=== PATIENT | female | born 1955 | race Caucasian/White ===

== ENCOUNTER 2019-01-25 14:01 | Inpatient (IN) | payer BC ==
[2019-01-25] MEDS ORDERED: Albuterol/Ipratropium 3.0-0.5 MG/3 ML Neb Soln NEB ONE (14:09)
[2019-01-25] MEDS ORDERED: Sodium Chloride 0.9% 1,000 ML IV ONE (14:09)
[2019-01-25] MEDS ORDERED: Sodium Chloride 0.9% 2.5 ML Syringe FLUSH PRN (14:10)
[2019-01-25] MEDS ORDERED: Sodium Chloride 0.9% 10 ML Syringe FLUSH PRN (14:10)
--- NOTE | 2019-01-25 14:25 | EDM.PDOC ---
ED HPI GENERAL MEDICAL PROBLEM - General Chief Complaint: Respiratory Problem Stated Complaint: FLU Time Seen by Provider: 01/25/19 14:06 Source of Information: Reports: Patient History Limitations: Reports: No Limitations - History of Present Illness INITIAL COMMENTS - FREE TEXT/NARRATIVE: History of present illness: []Patient was diagnosed clinically with influenza week and half ago and completed 5 days of Tamiflu 4 days after symptoms began. She now presents with shortness of breath, worsening cough, weakness and diarrhea. Review of systems: As per history of present illness and below otherwise all systems reviewed and negative. Past medical history: As per history of present illness and as reviewed below otherwise noncontributory. Surgical history: As per history of present illness and as reviewed below otherwise noncontributory. Social history: No reported history of drug or alcohol abuse. Family history: As per history of present illness and as reviewed below otherwise noncontributory. Physical exam: General: Well developed, well nourished in NAD HEENT: Atraumatic, normocephalic, pupils reactive, negative for conjunctival pallor or scleral icterus, mucous membranes moist, throat clear, neck supple, nontender, trachea midline. Lungs: Rhonchi diffuse equal bilaterally, chest nontender. Heart: S1S2, regular, negative for clicks, rubs, or JVD. Abdomen: NABS, Soft, nondistended, nontender. Negative for masses or hepatosplenomegaly. Negative for costovertebral tenderness. Pelvis: Stable nontender. Genitourinary: Deferred. Rectal: Deferred. Extremities: Atraumatic, negative for cords or calf pain. Neurovascular unremarkable. Neuro: Awake, alert, oriented. Cranial nerves II through XII unremarkable. Cerebellum unremarkable. Motor and sensory unremarkable throughout. Exam nonfocal. Skin:warm and dry Diagnostics: Blood cultures, CBC, chemistry, influenza, chest x-ray Therapeutics: DuoNeb, IV fluids, O2, Levaquin ED Course: Patient remained hypoxic despite nebulizers, consulted Dr. Urias for admission Impression: Left upper lobe pneumonia with elevated white count and hypoxia Prescriptions: None Plan: Admit for IV antibiotics, O2 supplementation and IV fluids. Definitive disposition and diagnosis as appropriate pending reevaluation and review of above. Generalized Pain Score (Numeric/FACES): 4 - Related Data Allergies Allergy/AdvReac Type Severity Reaction Status Date / Time clindamycin Allergy Diarrhea Verified 01/25/19 14:05 erythromycin base Allergy Diarrhea Verified 01/25/19 14:05 [Erythromycin Base] lisinopril Allergy Facial Verified 01/25/19 14:05 Swelling Home Meds: Home Meds Diltiazem IR [Cardizem] 1 tab PO BEDTIME 06/29/14 [History] Escitalopram [Lexapro] 1 tab PO DAILY 06/29/14 [History] Pramipexole [Mirapex] 1 tab PO DAILY 06/29/14 [History] Past Medical History Cardiovascular History: Reports: Hypertension, Other (See Below) Other Cardiovascular History: PAC Gastrointestinal History: Reports: Diverticulosis, Irritable Bowel Syndrome Genitourinary History: Reports: Renal Calculus 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: Psychiatric History: Reports: Anxiety - Infectious Disease History Infectious Disease History: Reports: Chicken Pox - Past Surgical History HEENT Surgical History: Reports: Tonsillectomy Female Surgical History: Reports: Section, Lithotripsy/ESWL Musculoskeletal Surgical History: Reports: Carpal Tunnel, Other (See Below) Social & Family History - Family History Family Medical History: Noncontributory - Tobacco Use Smoking Status *Q: Never Smoker - Caffeine Use Caffeine Use: Reports: None - Recreational Drug Use Recreational Drug Use: No ED ROS GENERAL - Review of Systems Review Of Systems: ROS reveals no pertinent complaints other than HPI. ED EXAM, GENERAL - Physical Exam Exam: See Below (See history of present illness) Course - Vital Signs Last Recorded V/S: Last Vital Signs Temp 100.1 F 01/25/19 15:17 Pulse 112 H 01/25/19 15:17 Resp 15 01/25/19 15:17 BP 154/68 H 01/25/19 15:17 Pulse Ox 93 L 01/25/19 15:17 - Orders/Labs/Meds Orders: Active Orders 24 hr Category Date Time Status Patient Status [ADT] Stat ADT 01/25/19 15:36 Ordered Oxygen Therapy, ED [RC] ASDIRECTED Care 01/25/19 15:28 Active RT Aerosol Therapy [RC] ASDIRECTED Care 01/25/19 14:10 Active CULTURE BLOOD [BC] Stat Lab 01/25/19 14:23 Received CULTURE BLOOD [BC] Stat Lab 01/25/19 14:23 Received Levofloxacin/Dextrose 5%-Water [Levaquin in D5W 500 MG/ Med 01/25/19 15:04 Active 100 ML] 500 mg Premix Bag 1 bag IV ONETIME Sodium Chloride 0.9% [Saline Flush] Med 01/25/19 14:10 Active 10 ml FLUSH ASDIRECTED PRN Sodium Chloride 0.9% [Saline Flush] Med 01/25/19 14:10 Active 2.5 ml FLUSH ASDIRECTED PRN Blood Culture x2 Reflex Set [OM.PC] Stat Oth 01/25/19 14:09 Ordered Saline Lock Insert [OM.PC] Stat Oth 01/25/19 14:09 Ordered Medication Orders Levofloxacin/Dextrose 500 mg/ (Premix) 100 mls @ 100 mls/hr IV ONETIME ONE Stop: 01/25/19 16:03 Last Admin: 01/25/19 15:16 Dose: 100 mls/hr Sodium Chloride (Saline Flush) 10 ml FLUSH ASDIRECTED PRN PRN Reason: Keep Vein Open Last Admin: 01/25/19 14:24 Dose: 10 ml Sodium Chloride (Saline Flush) 2.5 ml FLUSH ASDIRECTED PRN PRN Reason: Keep Vein Open Last Admin: 01/25/19 14:24 Dose: 2.5 ml Labs: Laboratory Tests 01/25/19 01/25/19 Range/Units 14:23 14:23 WBC 19.15 H (4.0-11.0) K/uL RBC 5.20 (4.30-5.90) M/uL Hgb 15.3 (12.0-16.0) g/dL Hct 45.1 (36.0-46.0) % MCV 86.7 (80.0-98.0) fL MCH 29.4 (27.0-32.0) pg MCHC 33.9 (31.0-37.0) g/dL RDW Std Deviation 45.6 (28.0-62.0) fl RDW Coeff of Becky 14 (11.0-15.0) % Plt Count 460 H (150-400) K/uL MPV 9.90 (7.40-12.00) fL Add Manual Diff YES Neutrophils % (Manual) 71 (48.0-80.0) % Band Neutrophils % 4 % Lymphocytes % (Manual) 18 (16.0-40.0) % Monocytes % (Manual) 7 (0.0-15.0) % Nucleated RBC % 0.0 /100WBC Absolute Seg Neuts 13.6 H (1.4-5.7) Band Neutrophils # 0.8 Lymphocytes # (Manual) 3.4 H (0.6-2.4) Monocytes # (Manual) 1.3 H (0.0-0.8) Nucleated RBCs # 0 K/uL Sodium 136 (136-145) mmol/L Potassium 3.7 (3.5-5.1) mmol/L Chloride 99 (98-107) mmol/L Carbon Dioxide 23.9 (21.0-32.0) mmol/L BUN 17 (7.0-18.0) mg/dL Creatinine 0.7 (0.6-1.0) mg/dL Est Cr Clr Drug Dosing 85.14 mL/min Estimated GFR (MDRD) > 60.0 ml/min Glucose 134 H (74-106) mg/dL Calcium 9.6 (8.5-10.1) mg/dL Total Bilirubin 0.4 (0.2-1.0) mg/dL AST 25 (15-37) IU/L ALT 32 (14-63) IU/L Alkaline Phosphatase 128 H (46-116) U/L Total Protein 8.2 (6.4-8.2) g/dL Albumin 2.8 L (3.4-5.0) g/dL Globulin 5.4 H (2.6-4.0) g/dL Albumin/Globulin Ratio 0.5 L (0.9-1.6) Meds: Medications Generic Name Dose Route Start Last Admin Trade Name Freq PRN Reason Stop Dose Admin Levofloxacin/Dextrose 500 mg/ 100 mls @ 100 mls/hr 01/25/19 15:04 01/25/19 15 :16 Premix IV 01/25/19 16:03 100 mls/hr ONETIME ONE Administration Sodium Chloride 10 ml 01/25/19 14:10 01/25/19 14:24 Saline Flush FLUSH 10 ml ASDIRECTED PRN Administration Keep Vein Open Sodium Chloride 2.5 ml 01/25/19 14:10 01/25/19 14:24 Saline Flush FLUSH 2.5 ml ASDIRECTED PRN Administration Keep Vein Open Discontinued Medications Generic Name Dose Route Start Last Admin Trade Name Freq PRN Reason Stop Dose Admin Albuterol/Ipratropium 3 ml 01/25/19 14:09 01/25/19 14:24 Duoneb 3.0-0.5 Mg/3 Ml NEB 01/25/19 14:10 3 ml ONETIME ONE Administration Sodium Chloride 1,000 mls @ 999 mls/hr 01/25/19 14:09 01/25/19 14:24 Normal Saline IV 01/25/19 15:09 999 mls/hr .Bolus ONE Administration Ketorolac Tromethamine 30 mg 01/25/19 15:09 01/25/19 15:14 Toradol IVPUSH 01/25/19 15:10 30 mg ONETIME ONE Administration Departure - Departure Time of Disposition: 15:41 Disposition: Admitted As Inpatient 68 Preliminary Cause of *Q: Sepsis & Multi System Organ Failure Condition: Good Clinical Impression: Left upper lobe pneumonia Qualifiers: Pneumonia type: due to unspecified organism Qualified Code(s): J18.1 - Lobar pneumonia, unspecified organism - Discharge Information *PRESCRIPTION DRUG MONITORING PROGRAM REVIEWED*: No *COPY OF PRESCRIPTION DRUG MONITORING REPORT IN PATIENT TRENT: No Referrals: PCP,Unknown [Primary Care Provider] - Forms: ED Department Discharge - My Orders Last 24 Hours: My Active Orders 01/25/19 14:09 Blood Culture x2 Reflex Set [OM.PC] Stat Saline Lock Insert [OM.PC] Stat 01/25/19 14:10 RT Aerosol Therapy [RC] ASDIRECTED Sodium Chloride 0.9% [Saline Flush] 10 ml FLUSH ASDIRECTED PRN Sodium Chloride 0.9% [Saline Flush] 2.5 ml FLUSH ASDIRECTED PRN 01/25/19 14:23 CULTURE BLOOD [BC] Stat CULTURE BLOOD [BC] Stat 01/25/19 15:04 Levofloxacin/Dextrose 5%-Water [Levaquin in D5W 500 MG/100 ML] 500 mg Premix Bag 1 bag IV ONETIME 01/25/19 15:28 Oxygen Therapy, ED [RC] ASDIRECTED 01/25/19 15:36 Patient Status [ADT] Stat - Assessment/Plan Last 24 Hours: My Active Orders 01/25/19 14:09 Blood Culture x2 Reflex Set [OM.PC] Stat Saline Lock Insert [OM.PC] Stat 01/25/19 14:10 RT Aerosol Therapy [RC] ASDIRECTED Sodium Chloride 0.9% [Saline Flush] 10 ml FLUSH ASDIRECTED PRN Sodium Chloride 0.9% [Saline Flush] 2.5 ml FLUSH ASDIRECTED PRN 01/25/19 14:23 CULTURE BLOOD [BC] Stat CULTURE BLOOD [BC] Stat 01/25/19 15:04 Levofloxacin/Dextrose 5%-Water [Levaquin in D5W 500 MG/100 ML] 500 mg Premix Bag 1 bag IV ONETIME 01/25/19 15:28 Oxygen Therapy, ED [RC] ASDIRECTED 01/25/19 15:36 Patient Status [ADT] Stat
[2019-01-25 14:57] LABS: CHLORIDE,CL 99 mmol/L (98-107); SODIUM,NA 136 mmol/L (136-145)
[2019-01-25] MEDS ORDERED: Levofloxacin/Dextrose 5%-Water 500 MG in Premix Bag 1 BAG IV ONE (15:04)
[2019-01-25] MEDS ORDERED: Ketorolac 30 MG/ML SDV IVPUSH ONE (15:09)
--- NOTE | 2019-01-25 15:30 | CR ---
INDICATION: Pain with cough and shortness of breath. TECHNIQUE: Two views. FINDINGS : Subtle hazy opacity in the left upper lobe laterally with prominence of the fissure on the lateral view. Pulmonary vascularity is upper normal. Subtle thin reticular prominence of interstitium diffusely. Some patchy and reticular opacities in both bases medially. Pulmonary vascularity normal. Cardiomediastinal silhouette within normal limits. No pneumothorax or effusion. IMPRESSION: Subtle left upper lobe pneumonia. Mild interstitial prominence diffusely. Dictated by Kirk Mendoza MD @ Jan 25 2019 3:20PM Signed by Dr. Kirk Mendoza @ Jan 25 2019 3:28PM
--- NOTE | 2019-01-25 18:34 | PCM.HP ---
H&P History of Present Illness - General Date of Service: 01/25/19 Admit Problem/Dx: Admission Diagnosis/Problem Admission Diagnosis/Problem Pneumonia - History of Present Illness Initial Comments - Free Text/Narative: 63 yo female who presents with three week history of productive cough, fevers, and shortness of breath. Patient has completed five days of tamiflu at home. Because her symptoms were not resolving she presented to the ED today. She was noted to be satting in the upper 80s or room air. WBC of 19,500 and CXR showing left upper lobe pneumonia. Generalized Pain Score (Numeric/FACES): 0 - Related Data Allergies/Adverse Reactions: Allergies Allergy/AdvReac Type Severity Reaction Status Date / Time clindamycin Allergy Diarrhea Verified 01/25/19 14:05 erythromycin base Allergy Diarrhea Verified 01/25/19 14:05 [Erythromycin Base] lisinopril Allergy Facial Verified 01/25/19 14:05 Swelling Home Medications: Home Meds Escitalopram [Lexapro] 10 mg PO BEDTIME 06/29/14 [History] Pramipexole [Mirapex] 0.25 mg PO ASDIRECTED 06/29/14 [History] Diltiazem HCl [Diltiazem ER] 240 mg PO BEDTIME 01/25/19 [History] Melatonin 5 mg PO BEDTIME PRN 01/25/19 [History] atorvaSTATin Calcium [Lipitor] 40 mg PO BEDTIME 01/25/19 [History] hydroCHLOROthiazide [Hydrochlorothiazide] 25 mg PO DAILY 01/25/19 [History] Past Medical History HEENT History: Reports: Impaired Vision Cardiovascular History: Reports: Hypertension, Other (See Below) Other Cardiovascular History: PAC Respiratory History: Reports: Asthma Gastrointestinal History: Reports: Diverticulosis, Irritable Bowel Syndrome Genitourinary History: Reports: Renal Calculus 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 Removed. Dermatologic History: Reports: Other (See Below) Other Dermatologic History: Squamous cell carinoma to head. Removed. - Infectious Disease History Infectious Disease History: Reports: Chicken Pox - Past Surgical History Head Surgeries/Procedures: Reports: None HEENT Surgical History: Reports: Tonsillectomy Other HEENT Surgeries/Procedures: Wears glasses. Cardiovascular Surgical History: Reports: None GI Surgical History: Reports: None Female Surgical History: Reports: Section, Lithotripsy/ESWL Musculoskeletal Surgical History: Reports: Carpal Tunnel, Other (See Below) Other Musculoskeletal Surgeries/Procedures:: Scope to R knee. Oncologic Surgical History: Reports: None Social & Family History - Family History Family Medical History: Noncontributory - Tobacco Use Smoking Status *Q: Never Smoker Second Hand Smoke Exposure: No - Caffeine Use Caffeine Use: Reports: None - Recreational Drug Use Recreational Drug Use: No H&P Review of Systems - Review of Systems: Review Of Systems: ROS reveals no pertinent complaints other than HPI. Exam - Exam Exam: See Below - Vital Signs Vital Signs: Last Vital Signs Temp 37.1 C 01/25/19 16:00 Pulse 107 H 01/25/19 16:00 Resp 18 01/25/19 16:00 BP 140/53 L 01/25/19 16:00 Pulse Ox 95 01/25/19 16:00 Weight: 94.483 kg - Exam General: Alert, Oriented HEENT: Mucosa Moist & [place]aks Lungs: Clear to Auscultation, Normal Respiratory Effort Cardiovascular: Regular Rate, Regular Rhythm GI/Abdominal Exam: Normal Bowel Sounds, Soft, Non-Tender Extremities: Non-Tender, No Pedal Edema Skin: Warm, Dry, Intact - Patient Data Lab Results Last 24 hrs: Laboratory Results - last 24 hr 01/25/19 01/25/19 Range/Units 14:23 14:23 WBC 19.15 H (4.0-11.0) K/uL RBC 5.20 (4.30-5.90) M/uL Hgb 15.3 (12.0-16.0) g/dL Hct 45.1 (36.0-46.0) % MCV 86.7 (80.0-98.0) fL MCH 29.4 (27.0-32.0) pg MCHC 33.9 (31.0-37.0) g/dL RDW Std Deviation 45.6 (28.0-62.0) fl RDW Coeff of Becky 14 (11.0-15.0) % Plt Count 460 H (150-400) K/uL MPV 9.90 (7.40-12.00) fL Add Manual Diff YES Neutrophils % (Manual) 71 (48.0-80.0) % Band Neutrophils % 4 % Lymphocytes % (Manual) 18 (16.0-40.0) % Monocytes % (Manual) 7 (0.0-15.0) % Nucleated RBC % 0.0 /100WBC Absolute Seg Neuts 13.6 H (1.4-5.7) Band Neutrophils # 0.8 Lymphocytes # (Manual) 3.4 H (0.6-2.4) Monocytes # (Manual) 1.3 H (0.0-0.8) Nucleated RBCs # 0 K/uL Sodium 136 (136-145) mmol/L Potassium 3.7 (3.5-5.1) mmol/L Chloride 99 (98-107) mmol/L Carbon Dioxide 23.9 (21.0-32.0) mmol/L BUN 17 (7.0-18.0) mg/dL Creatinine 0.7 (0.6-1.0) mg/dL Est Cr Clr Drug Dosing 85.14 mL/min Estimated GFR (MDRD) > 60.0 ml/min Glucose 134 H (74-106) mg/dL Calcium 9.6 (8.5-10.1) mg/dL Total Bilirubin 0.4 (0.2-1.0) mg/dL AST 25 (15-37) IU/L ALT 32 (14-63) IU/L Alkaline Phosphatase 128 H (46-116) U/L Total Protein 8.2 (6.4-8.2) g/dL Albumin 2.8 L (3.4-5.0) g/dL Globulin 5.4 H (2.6-4.0) g/dL Albumin/Globulin Ratio 0.5 L (0.9-1.6) Result Diagrams: 01/26/19 07:27 01/26/19 07:27 Jian Results Last 24 hrs: Microbiology 01/25/19 14:16 Influenza Type A Antigen Screen - Final Nasopharyngeal Swab NEGATIVE INFLUENZA A VIRUS AG Influenza Type B Antigen Screen - Final NEGATIVE INFLUENZA B VIRUS AG Problem List Initiated/Reviewed/Updated: Yes Orders Last 24hrs: Active Orders 24 hr Category Date Time Status Patient Status [ADT] Stat ADT 01/25/19 15:36 Active Oxygen Therapy, ED [RC] ASDIRECTED Care 01/25/19 15:28 Active RT Aerosol Therapy [RC] ASDIRECTED Care 01/25/19 14:10 Active Regular Diet [DIET] Diet 01/25/19 Dinner Active CULTURE BLOOD [BC] Stat Lab 01/25/19 14:23 Received CULTURE BLOOD [BC] Stat Lab 01/25/19 14:23 Received Diltiazem HCl Med 01/25/19 21:00 Ordered 240 mg PO BEDTIME Escitalopram Med 01/25/19 21:00 Ordered 10 mg PO BEDTIME Levofloxacin/Dextrose 5%-Water [Levaquin in D5W 750 MG/ Med 01/26/19 16:00 Ordered 150 ML] 750 mg Premix Bag 1 bag IV Q24H Melatonin [Melatonin] Med 01/25/19 18:28 Ordered 5 mg PO BEDTIME PRN Pramipexole Med 01/25/19 18:30 Ordered 0.25 mg PO ASDIRECTED Sodium Chloride 0.9% [Saline Flush] Med 01/25/19 14:10 Active 10 ml FLUSH ASDIRECTED PRN Sodium Chloride 0.9% [Saline Flush] Med 01/25/19 14:10 Active 2.5 ml FLUSH ASDIRECTED PRN atorvaSTATin [Lipitor] Med 01/25/19 21:00 Ordered 40 mg PO BEDTIME hydroCHLOROthiazide Med 01/26/19 09:00 Ordered 25 mg PO DAILY Blood Culture x2 Reflex Set [OM.PC] Stat Oth 01/25/19 14:09 Ordered Saline Lock Insert [OM.PC] Stat Oth 01/25/19 14:09 Ordered Medication Orders Levofloxacin/Dextrose 750 mg/ (Premix) 150 mls @ 100 mls/hr IV Q24H TODD Sodium Chloride (Saline Flush) 10 ml FLUSH ASDIRECTED PRN PRN Reason: Keep Vein Open Last Admin: 01/25/19 14:24 Dose: 10 ml Sodium Chloride (Saline Flush) 2.5 ml FLUSH ASDIRECTED PRN PRN Reason: Keep Vein Open Last Admin: 01/25/19 14:24 Dose: 2.5 ml Assessment/Plan Comment:: 63 yo female admitted with community acquired pneumonia. We will treat with Levaquin.
[2019-01-25] MEDS: Diltiazem 120 MG Cap.CD PO SCH (20:44)
[2019-01-25] MEDS: Escitalopram 10 MG Tab PO SCH (20:45)
[2019-01-25] MEDS: atorvaSTATin 40 MG Tab PO SCH (20:45)
[2019-01-25] MEDS ORDERED: Albuterol/Ipratropium 3.0-0.5 MG/3 ML Neb Soln NEB PRN (21:19)
[2019-01-25] MEDS: Albuterol/Ipratropium 3.0-0.5 MG/3 ML Neb Soln NEB SCH (21:35)
[2019-01-25] MEDS: Melatonin 3 MG Tab PO PRN (22:23)
[2019-01-26] MEDS: Albuterol/Ipratropium 3.0-0.5 MG/3 ML Neb Soln NEB SCH ×4 (00:07→17:22)
[2019-01-26 07:59] LABS: CHLORIDE,CL 104 mmol/L (98-107); SODIUM,NA 137 mmol/L (136-145)
[2019-01-26] MEDS: Acetaminophen 325 MG Tab PO PRN ×2 (09:00→19:55)
[2019-01-26] MEDS: Hydrochlorothiazide 25 MG Tab PO SCH (09:00)
--- NOTE | 2019-01-26 10:18 | PCM.PN ---
- General Info Date of Service: 01/26/19 Subjective Update: Patient reports she is doing ok, she is still requiring some oxygen. She denies chest pain, abdominal pain, or fevers. No trouble eating, drinking, or going to the bathroom. - Review of Systems General: Reports: No Symptoms HEENT: Reports: No Symptoms Pulmonary: Reports: Cough Cardiovascular: Reports: No Symptoms Gastrointestinal: Reports: No Symptoms Genitourinary: Reports: No Symptoms Musculoskeletal: Reports: No Symptoms Skin: Reports: No Symptoms Neurological: Reports: No Symptoms Psychiatric: Reports: No Symptoms - Patient Data Vitals - Most Recent: Last Vital Signs Temp 97.0 F 01/26/19 07:30 Pulse 87 01/26/19 07:30 Resp 18 01/26/19 07:30 BP 126/59 L 01/26/19 07:30 Pulse Ox 92 L 01/26/19 07:30 Weight - Most Recent: 94.483 kg I&O - Last 24 Hours: Intake & Output 01/25/19 01/26/19 01/26/19 22:59 06:59 14:59 Intake Total 300 Output Total 400 Balance -100 Lab Results Last 24 Hours: Laboratory Results - last 24 hr 01/25/19 01/25/19 01/26/19 Range/Units 14:23 14:23 07:27 WBC 19.15 H (4.0-11.0) K/uL RBC 5.20 (4.30-5.90) M/uL Hgb 15.3 (12.0-16.0) g/dL Hct 45.1 (36.0-46.0) % MCV 86.7 (80.0-98.0) fL MCH 29.4 (27.0-32.0) pg MCHC 33.9 (31.0-37.0) g/dL RDW Std Deviation 45.6 (28.0-62.0) fl RDW Coeff of Becky 14 (11.0-15.0) % Plt Count 460 H (150-400) K/uL MPV 9.90 (7.40-12.00) fL Neut % (Auto) (48.0-80.0) % Lymph % (Auto) (16.0-40.0) % Archer % (Auto) (0.0-15.0) % Eos % (Auto) (0.0-7.0) % Baso % (Auto) (0.0-1.5) % Neut # (Auto) (1.4-5.7) K/uL Lymph # (Auto) (0.6-2.4) K/uL Archer # (Auto) (0.0-0.8) K/uL Eos # (Auto) (0.0-0.7) K/uL Baso # (Auto) (0.0-0.1) K/uL Add Manual Diff YES Neutrophils % (Manual) 71 (48.0-80.0) % Band Neutrophils % 4 % Lymphocytes % (Manual) 18 (16.0-40.0) % Monocytes % (Manual) 7 (0.0-15.0) % Nucleated RBC % 0.0 /100WBC Absolute Seg Neuts 13.6 H (1.4-5.7) Band Neutrophils # 0.8 Lymphocytes # (Manual) 3.4 H (0.6-2.4) Monocytes # (Manual) 1.3 H (0.0-0.8) Nucleated RBCs # 0 K/uL Sodium 136 137 (136-145) mmol/L Potassium 3.7 3.8 (3.5-5.1) mmol/L Chloride 99 104 (98-107) mmol/L Carbon Dioxide 23.9 25.2 (21.0-32.0) mmol/L BUN 17 12 (7.0-18.0) mg/dL Creatinine 0.7 0.6 (0.6-1.0) mg/dL Est Cr Clr Drug Dosing 85.14 99.33 mL/min Estimated GFR (MDRD) > 60.0 > 60.0 ml/min Glucose 134 H 147 H (74-106) mg/dL Calcium 9.6 8.3 L (8.5-10.1) mg/dL Total Bilirubin 0.4 (0.2-1.0) mg/dL AST 25 (15-37) IU/L ALT 32 (14-63) IU/L Alkaline Phosphatase 128 H (46-116) U/L Total Protein 8.2 (6.4-8.2) g/dL Albumin 2.8 L (3.4-5.0) g/dL Globulin 5.4 H (2.6-4.0) g/dL Albumin/Globulin Ratio 0.5 L (0.9-1.6) 01/26/19 Range/Units 07:27 WBC 14.33 H (4.0-11.0) K/uL RBC 4.43 (4.30-5.90) M/uL Hgb 12.7 (12.0-16.0) g/dL Hct 38.6 (36.0-46.0) % MCV 87.1 (80.0-98.0) fL MCH 28.7 (27.0-32.0) pg MCHC 32.9 (31.0-37.0) g/dL RDW Std Deviation 46.5 (28.0-62.0) fl RDW Coeff of Becky 15 (11.0-15.0) % Plt Count 380 (150-400) K/uL MPV 9.80 (7.40-12.00) fL Neut % (Auto) 82.1 H (48.0-80.0) % Lymph % (Auto) 11.3 L (16.0-40.0) % Archer % (Auto) 5.8 (0.0-15.0) % Eos % (Auto) 0.5 (0.0-7.0) % Baso % (Auto) 0.3 (0.0-1.5) % Neut # (Auto) 11.8 H (1.4-5.7) K/uL Lymph # (Auto) 1.6 (0.6-2.4) K/uL Archer # (Auto) 0.8 (0.0-0.8) K/uL Eos # (Auto) 0.1 (0.0-0.7) K/uL Baso # (Auto) 0.0 (0.0-0.1) K/uL Add Manual Diff Neutrophils % (Manual) (48.0-80.0) % Band Neutrophils % % Lymphocytes % (Manual) (16.0-40.0) % Monocytes % (Manual) (0.0-15.0) % Nucleated RBC % 0.0 /100WBC Absolute Seg Neuts (1.4-5.7) Band Neutrophils # Lymphocytes # (Manual) (0.6-2.4) Monocytes # (Manual) (0.0-0.8) Nucleated RBCs # 0 K/uL Sodium (136-145) mmol/L Potassium (3.5-5.1) mmol/L Chloride (98-107) mmol/L Carbon Dioxide (21.0-32.0) mmol/L BUN (7.0-18.0) mg/dL Creatinine (0.6-1.0) mg/dL Est Cr Clr Drug Dosing mL/min Estimated GFR (MDRD) ml/min Glucose (74-106) mg/dL Calcium (8.5-10.1) mg/dL Total Bilirubin (0.2-1.0) mg/dL AST (15-37) IU/L ALT (14-63) IU/L Alkaline Phosphatase (46-116) U/L Total Protein (6.4-8.2) g/dL Albumin (3.4-5.0) g/dL Globulin (2.6-4.0) g/dL Albumin/Globulin Ratio (0.9-1.6) Jian Results Last 24 Hours: Microbiology 01/25/19 14:16 Influenza Type A Antigen Screen - Final Nasopharyngeal Swab NEGATIVE INFLUENZA A VIRUS AG Influenza Type B Antigen Screen - Final NEGATIVE INFLUENZA B VIRUS AG Med Orders - Current: Current Medications Acetaminophen (Tylenol) 650 mg PO Q4H PRN PRN Reason: Pain/Fever Last Admin: 01/26/19 09:00 Dose: 650 mg Albuterol/Ipratropium (Duoneb 3.0-0.5 Mg/3 Ml) 3 ml NEB Q4HRRT PRN PRN Reason: Shortness of Breath Albuterol/Ipratropium (Duoneb 3.0-0.5 Mg/3 Ml) 3 ml NEB Q6HRRT [facility] Last Admin: 01/26/19 05:52 Dose: 3 ml Atorvastatin Calcium (Lipitor) 40 mg PO BEDTIME TODD Last Admin: 01/25/19 20:45 Dose: 40 mg Diltiazem HCl (Cardizem Cd) 240 mg PO BEDTIME TODD Last Admin: 01/25/19 20:44 Dose: 240 mg Escitalopram Oxalate (Lexapro) 10 mg PO BEDTIME [facility] Last Admin: 01/25/19 20:45 Dose: 10 mg Hydrochlorothiazide (Hydrochlorothiazide) 25 mg PO DAILY [facility] Last Admin: 01/26/19 09:00 Dose: 25 mg Levofloxacin/Dextrose 750 mg/ (Premix) 150 mls @ 100 mls/hr IV Q24H TODD Melatonin (Melatonin) 6 mg PO BEDTIME PRN PRN Reason: SLEEP Last Admin: 01/25/19 22:23 Dose: 6 mg Pramipexole Dihydrochloride (Mirapex) 0.25 mg PO DAILY@1700 TODD Sodium Chloride (Saline Flush) 10 ml FLUSH ASDIRECTED PRN PRN Reason: Keep Vein Open Last Admin: 01/25/19 14:24 Dose: 10 ml Sodium Chloride (Saline Flush) 2.5 ml FLUSH ASDIRECTED PRN PRN Reason: Keep Vein Open Last Admin: 01/25/19 14:24 Dose: 2.5 ml Discontinued Medications Albuterol/Ipratropium (Duoneb 3.0-0.5 Mg/3 Ml) 3 ml NEB ONETIME ONE Stop: 01/25/19 14:10 Last Admin: 01/25/19 14:24 Dose: 3 ml Sodium Chloride (Normal Saline) 1,000 mls @ 999 mls/hr IV .Bolus ONE Stop: 01/25/19 15:09 Last Admin: 01/25/19 14:24 Dose: 999 mls/hr Levofloxacin/Dextrose 500 mg/ (Premix) 100 mls @ 100 mls/hr IV ONETIME ONE Stop: 01/25/19 16:03 Last Admin: 01/25/19 15:16 Dose: 100 mls/hr Ketorolac Tromethamine (Toradol) 30 mg IVPUSH ONETIME ONE Stop: 01/25/19 15:10 Last Admin: 01/25/19 15:14 Dose: 30 mg - Exam Quality Assessment: Supplemental Oxygen General: Alert, Oriented Lungs: Normal Respiratory Effort, Crackles, Wheezing Cardiovascular: Regular Rate, Regular Rhythm GI/Abdominal Exam: Normal Bowel Sounds, Soft, Non-Tender, No Distention Extremities: No Pedal Edema Skin: Warm, Dry, Intact Neurological: No New Focal Deficit Psy/Mental Status: Alert, Normal Affect, Normal Mood - Problem List Review Problem List Initiated/Reviewed/Updated: Yes - My Orders Last 24 Hours: My Active Orders 01/26/19 08:04 Code Status [Resuscitation Status] Routine 01/26/19 08:51 Acetaminophen [Tylenol] 650 mg PO Q4H PRN - Plan Plan:: 1. Community acquired pneumonia- will try to wean off oxygen and continue with Levaquin. WBC improving. Likely discharge tomorrow. 2. Hx of hyperlipidemia, HTN, depression/anxiety, and PACs- continue home meds.
[2019-01-26] MEDS ORDERED: diphenhydrAMINE 25 MG Cap PO PRN (16:14)
[2019-01-26] MEDS: Pramipexole 0.25 MG Tab PO SCH (16:37)
[2019-01-26] MEDS: Levofloxacin/Dextrose 5%-Water 750 MG in Premix Bag 1 BAG IV SCH (16:41)
[2019-01-26] MEDS ORDERED: Ondansetron 4 MG/2 ML SDV IVPUSH PRN (19:39)
[2019-01-26] MEDS: Escitalopram 10 MG Tab PO SCH (22:13)
[2019-01-26] MEDS: Diltiazem 120 MG Cap.CD PO SCH (22:13)
[2019-01-26] MEDS: atorvaSTATin 40 MG Tab PO SCH (22:13)
[2019-01-27] MEDS: Albuterol/Ipratropium 3.0-0.5 MG/3 ML Neb Soln NEB SCH ×4 (00:30→17:39)
[2019-01-27] MEDS: Acetaminophen 325 MG Tab PO PRN ×2 (06:57→16:47)
--- NOTE | 2019-01-27 08:27 | PCM.PN ---
- General Info Date of Service: 01/27/19 Subjective Update: The patient is a 63 year old female who was admitted for pneumonia. She was on 0.5 L of oxygen yesterday but overnight was bumped up to 2 L due to O2 stats in the high 80s. On rounds she is feeling better and she is back down to 1 L. She denies chest pain, abdominal pain, or fevers. - Review of Systems General: Reports: No Symptoms HEENT: Reports: No Symptoms Pulmonary: Reports: Shortness of Breath, Cough Cardiovascular: Reports: No Symptoms Gastrointestinal: Reports: No Symptoms Genitourinary: Reports: No Symptoms Musculoskeletal: Reports: No Symptoms Skin: Reports: No Symptoms Neurological: Reports: No Symptoms Psychiatric: Reports: No Symptoms - Patient Data Vitals - Most Recent: Last Vital Signs Temp 98.5 F 01/27/19 06:58 Pulse 87 01/27/19 06:58 Resp 16 01/27/19 06:58 BP 137/63 01/27/19 06:58 Pulse Ox 93 L 01/27/19 06:58 Weight - Most Recent: 94.483 kg I&O - Last 24 Hours: Intake & Output 01/26/19 01/27/19 01/27/19 22:59 06:59 14:59 Intake Total 1100 800 Output Total 800 1700 Balance 300 -900 Lab Results Last 24 Hours: Laboratory Results - last 24 hr 01/26/19 01/27/19 Range/Units 07:27 05:53 WBC 14.33 H 12.50 H (4.0-11.0) K/uL RBC 4.43 4.53 (4.30-5.90) M/uL Hgb 12.7 12.9 (12.0-16.0) g/dL Hct 38.6 39.4 (36.0-46.0) % MCV 87.1 87.0 (80.0-98.0) fL MCH 28.7 28.5 (27.0-32.0) pg MCHC 32.9 32.7 (31.0-37.0) g/dL RDW Std Deviation 46.5 45.9 (28.0-62.0) fl RDW Coeff of Becky 15 14 (11.0-15.0) % Plt Count 380 342 (150-400) K/uL MPV 9.80 9.20 (7.40-12.00) fL Neut % (Auto) 82.1 H 77.9 (48.0-80.0) % Lymph % (Auto) 11.3 L 14.1 L (16.0-40.0) % [place] % (Auto) 5.8 6.7 (0.0-15.0) % Eos % (Auto) 0.5 0.9 (0.0-7.0) % Baso % (Auto) 0.3 0.4 (0.0-1.5) % Neut # (Auto) 11.8 H 9.7 H (1.4-5.7) K/uL Lymph # (Auto) 1.6 1.8 (0.6-2.4) K/uL [place] # (Auto) 0.8 0.8 (0.0-0.8) K/uL Eos # (Auto) 0.1 0.1 (0.0-0.7) K/uL Baso # (Auto) 0.0 0.1 (0.0-0.1) K/uL Nucleated RBC % 0.0 0.0 /100WBC Nucleated RBCs # 0 0 K/uL Jian Results Last 24 Hours: Microbiology 01/25/19 14:23 Aerobic Blood Culture - Preliminary Blood - Venous - Lab Draw NO GROWTH AFTER 1 DAY Anaerobic Blood Culture - Preliminary NO GROWTH AFTER 1 DAY 01/25/19 14:23 Aerobic Blood Culture - Preliminary Blood - Venous NO GROWTH AFTER 1 DAY Anaerobic Blood Culture - Preliminary NO GROWTH AFTER 1 DAY Med Orders - Current: Current Medications Acetaminophen (Tylenol) 650 mg PO Q4H PRN PRN Reason: Pain/Fever Last Admin: 01/27/19 06:57 Dose: 650 mg Albuterol/Ipratropium (Duoneb 3.0-0.5 Mg/3 Ml) 3 ml NEB Q4HRRT PRN PRN Reason: Shortness of Breath Last Admin: 01/27/19 02:38 Dose: 3 ml Albuterol/Ipratropium (Duoneb 3.0-0.5 Mg/3 Ml) 3 ml NEB Q6HRRT TODD Last Admin: 01/27/19 06:23 Dose: 3 ml Atorvastatin Calcium (Lipitor) 40 mg PO BEDTIME TODD Last Admin: 01/26/19 22:13 Dose: 40 mg Diltiazem HCl (Cardizem Cd) 240 mg PO BEDTIME TODD Last Admin: 01/26/19 22:13 Dose: 240 mg Diphenhydramine HCl (Benadryl) 25 mg PO Q4H PRN PRN Reason: sinus pressure Last Admin: 01/26/19 16:49 Dose: 25 mg Escitalopram Oxalate (Lexapro) 10 mg PO BEDTIME TODD Last Admin: 01/26/19 22:13 Dose: 10 mg Hydrochlorothiazide (Hydrochlorothiazide) 25 mg PO DAILY [facility] Last Admin: 01/26/19 09:00 Dose: 25 mg Levofloxacin/Dextrose 750 mg/ (Premix) 150 mls @ 100 mls/hr IV Q24H [facility] Last Admin: 01/26/19 16:41 Dose: 100 mls/hr Melatonin (Melatonin) 6 mg PO BEDTIME PRN PRN Reason: SLEEP Last Admin: 01/25/19 22:23 Dose: 6 mg Ondansetron HCl (Zofran) 4 mg IVPUSH Q4H PRN PRN Reason: Nausea/Vomiting Pramipexole Dihydrochloride (Mirapex) 0.25 mg PO DAILY@1700 [facility] Last Admin: 01/26/19 16:37 Dose: 0.25 mg Sodium Chloride (Saline Flush) 10 ml FLUSH ASDIRECTED PRN PRN Reason: Keep Vein Open Last Admin: 01/25/19 14:24 Dose: 10 ml Sodium Chloride (Saline Flush) 2.5 ml FLUSH ASDIRECTED PRN PRN Reason: Keep Vein Open Last Admin: 01/25/19 14:24 Dose: 2.5 ml Discontinued Medications Albuterol/Ipratropium (Duoneb 3.0-0.5 Mg/3 Ml) 3 ml NEB ONETIME ONE Stop: 01/25/19 14:10 Last Admin: 01/25/19 14:24 Dose: 3 ml Sodium Chloride (Normal Saline) 1,000 mls @ 999 mls/hr IV .Bolus ONE Stop: 01/25/19 15:09 Last Admin: 01/25/19 14:24 Dose: 999 mls/hr Levofloxacin/Dextrose 500 mg/ (Premix) 100 mls @ 100 mls/hr IV ONETIME ONE Stop: 01/25/19 16:03 Last Admin: 01/25/19 15:16 Dose: 100 mls/hr Ketorolac Tromethamine (Toradol) 30 mg IVPUSH ONETIME ONE Stop: 01/25/19 15:10 Last Admin: 01/25/19 15:14 Dose: 30 mg - Exam Quality Assessment: Supplemental Oxygen General: Alert, Oriented, Cooperative Lungs: Normal Respiratory Effort, Rhonchi, Wheezing Cardiovascular: Regular Rate, Regular Rhythm GI/Abdominal Exam: Normal Bowel Sounds, Soft, Non-Tender, No Distention Extremities: No Pedal Edema Skin: Warm, Dry, Intact Neurological: No New Focal Deficit Psy/Mental Status: Alert, Normal Affect, Normal Mood - Problem List Review Problem List Initiated/Reviewed/Updated: Yes - My Orders Last 24 Hours: My Active Orders 01/26/19 08:04 Code Status [Resuscitation Status] Routine 01/26/19 08:51 Acetaminophen [Tylenol] 650 mg PO Q4H PRN 01/26/19 16:14 diphenhydrAMINE [Benadryl] 25 mg PO Q4H PRN 01/26/19 17:35 Communication Order [RC] DAILY - Plan Plan:: 1. Community acquired pneumonia- continue to try and wean off oxygen. WBC improving. Continue Levaquin and neb treatments. Possible discharge later this afternoon if improvement. 2. Hx of hyperlipidemia, HTN, depression/anxiety, and PACs- continue home meds. .
[2019-01-27] MEDS: Hydrochlorothiazide 25 MG Tab PO SCH (09:08)
[2019-01-27] MEDS: Levofloxacin/Dextrose 5%-Water 750 MG in Premix Bag 1 BAG IV SCH (15:12)
[2019-01-27] MEDS: Pramipexole 0.25 MG Tab PO SCH (16:45)
[2019-01-27] MEDS: Escitalopram 10 MG Tab PO SCH (21:21)
[2019-01-27] MEDS: atorvaSTATin 40 MG Tab PO SCH (21:21)
[2019-01-27] MEDS: Diltiazem 120 MG Cap.CD PO SCH (21:21)
[2019-01-28] MEDS: Albuterol/Ipratropium 3.0-0.5 MG/3 ML Neb Soln NEB SCH ×3 (00:13→11:40)
[2019-01-28] MEDS: Melatonin 3 MG Tab PO PRN (01:25)
[2019-01-28 06:13] LABS: CHLORIDE,CL 103 mmol/L (98-107); SODIUM,NA 141 mmol/L (136-145)
[2019-01-28] MEDS: Hydrochlorothiazide 25 MG Tab PO SCH (09:23)
[2019-01-28 09:24] VITALS: BP 135/54
--- NOTE | 2019-01-28 10:41 | PCM.DCSUM1 ---
Discharge Summary - Hospital Course HPI Initial Comments: Admission Date:01/25/19 Discharge Date: 01/28/19 Admission Diagnosis: 1. EMILIE community acquired pneumonia 2. Chronic conditions- hyperlipidemia, HTN, depress/anxeity, PACs Discharge Diagnosis: 1. EMILIE community acquired pneumonia 2. Chronic conditions- hyperlipidemia, HTN, depress/anxeity, PACs Procedures: None Consults: None Hospital Course: The patient is a 63-year-old female who presented to the ER with worsening shortness of breath, cough and weakness. She had been treated for influenza the week before. In the ER workup showed an elevated white count and chest x-ray showed a left upper lobe pneumonia. The patient was admitted to the medical surgical floor where she was treated with IV Levaquin, duo nebs and O2 therapy. By day of discharge she was completely weaned off her oxygen and was satting in the 90s, both at rest and walking the halls. Her white count was trended and resolved by day of discharge. Her home medications were continued for her chronic conditions. By day of discharge, she stated that she felt much better and was ready to go home. Disposition: Home Discharge Condition: vitals stable, tolerating oral diet, ambulating without difficultly Discharge Instructions: Regular diet as tolerated, activity as tolerated, may drive, may shower, complete course of antibiotics. Symptoms report physician include fever, chills, chest pain, shortness of breath, wheezing, abdominal pain , discharge, drainage, erythema, or not improving as expected Discharge Medications: Escitalopram [Lexapro] 10 mg PO BEDTIME Pramipexole [Mirapex] 0.25 mg PO ASDIRECTED Diltiazem HCl [Diltiazem ER] 240 mg PO BEDTIME Melatonin 5 mg PO BEDTIME PRN atorvaSTATin Calcium [Lipitor] 40 mg PO BEDTIME hydroCHLOROthiazide [Hydrochlorothiazide] 25 mg PO DAILY Albuterol/Ipratropium [DuoNeb 3.0-0.5 MG/3 ML] 3 ml .XX Q4HR PRN Levofloxacin [Levaquin] 750 mg PO DAILY Follow-up: PCP- Dr. Mendez on 02/04/19 - Discharge Data Discharge Date: 01/28/19 Discharge Disposition: Home, Self-Care 01 Preliminary Cause of *Q: Sepsis & Multi System Organ Failure Condition: Stable - Discharge Plan *PRESCRIPTION DRUG MONITORING PROGRAM REVIEWED*: No *COPY OF PRESCRIPTION DRUG MONITORING REPORT IN PATIENT TRENT: No Prescriptions/Med Rec: Albuterol/Ipratropium [DuoNeb 3.0-0.5 MG/3 ML] 3 ml .XX Q4HR PRN 5 Days #30 neb PRN Reason: Shortness Of Breath Levofloxacin [Levaquin] 750 mg PO DAILY 3 Days #3 tablet Home Medications: Home Meds Escitalopram [Lexapro] 10 mg PO BEDTIME 06/29/14 [History] Pramipexole [Mirapex] 0.25 mg PO ASDIRECTED 06/29/14 [History] Diltiazem HCl [Diltiazem ER] 240 mg PO BEDTIME 01/25/19 [History] Melatonin 5 mg PO BEDTIME PRN 01/25/19 [History] atorvaSTATin Calcium [Lipitor] 40 mg PO BEDTIME 01/25/19 [History] hydroCHLOROthiazide [Hydrochlorothiazide] 25 mg PO DAILY 01/25/19 [History] Albuterol/Ipratropium [DuoNeb 3.0-0.5 MG/3 ML] 3 ml .XX Q4HR PRN 5 Days #30 neb 01/28/19 [Rx] Levofloxacin [Levaquin] 750 mg PO DAILY 3 Days #3 tablet 01/28/19 [Rx] Patient Handouts: Levofloxacin tablets, Albuterol; Ipratropium solution for inhalation, Community-Acquired Pneumonia, Adult, [id number] Referrals: [facility] [Outside] Javier Mendez MD [Physician] - 02/04/19 1:45 pm - Discharge Summary/Plan Comment DC Time >30 min.: No - Patient Data Vitals - Most Recent: Last Vital Signs Temp 97.5 F 01/28/19 04:00 Pulse 91 01/28/19 09:23 Resp 16 01/28/19 09:23 BP 135/54 L 01/28/19 09:23 Pulse Ox 92 L 01/28/19 09:23 Weight - Most Recent: 94.483 kg I&O - Last 24 hours: Intake & Output 01/27/19 01/28/19 01/28/19 22:59 06:59 14:59 Intake Total 1490 200 Output Total 1600 900 Balance -110 -700 Lab Results - Last 24 hrs: Laboratory Results - last 24 hr 01/28/19 01/28/19 Range/Units 05:23 05:23 WBC 10.88 (4.0-11.0) K/uL RBC 4.58 (4.30-5.90) M/uL Hgb 13.1 (12.0-16.0) g/dL Hct 39.7 (36.0-46.0) % MCV 86.7 (80.0-98.0) fL MCH 28.6 (27.0-32.0) pg MCHC 33.0 (31.0-37.0) g/dL RDW Std Deviation 45.2 (28.0-62.0) fl RDW Coeff of Becky 15 (11.0-15.0) % Plt Count 355 (150-400) K/uL MPV 9.60 (7.40-12.00) fL Neut % (Auto) 74.2 (48.0-80.0) % Lymph % (Auto) 17.2 (16.0-40.0) % [place] % (Auto) 7.0 (0.0-15.0) % Eos % (Auto) 1.1 (0.0-7.0) % Baso % (Auto) 0.5 (0.0-1.5) % Neut # (Auto) 8.1 H (1.4-5.7) K/uL Lymph # (Auto) 1.9 (0.6-2.4) K/uL [place] # (Auto) 0.8 (0.0-0.8) K/uL Eos # (Auto) 0.1 (0.0-0.7) K/uL Baso # (Auto) 0.1 (0.0-0.1) K/uL Nucleated RBC % 0.0 /100WBC Nucleated RBCs # 0 K/uL Sodium 141 (136-145) mmol/L Potassium 3.7 (3.5-5.1) mmol/L Chloride 103 (98-107) mmol/L Carbon Dioxide 28.0 (21.0-32.0) mmol/L BUN 8 (7.0-18.0) mg/dL Creatinine 0.7 (0.6-1.0) mg/dL Est Cr Clr Drug Dosing 85.14 mL/min Estimated GFR (MDRD) > 60.0 ml/min Glucose 129 H (74-106) mg/dL Calcium 8.9 (8.5-10.1) mg/dL EUGENIA Results - Last 24 hrs: Microbiology 01/25/19 14:23 Aerobic Blood Culture - Preliminary Blood - Venous - Lab Draw NO GROWTH AFTER 2 DAYS Anaerobic Blood Culture - Preliminary NO GROWTH AFTER 2 DAYS 01/25/19 14:23 Aerobic Blood Culture - Preliminary Blood - Venous NO GROWTH AFTER 2 DAYS Anaerobic Blood Culture - Preliminary NO GROWTH AFTER 2 DAYS Med Orders - Current: Current Medications Acetaminophen (Tylenol) 650 mg PO Q4H PRN PRN Reason: Pain/Fever Last Admin: 01/27/19 16:47 Dose: 650 mg Albuterol/Ipratropium (Duoneb 3.0-0.5 Mg/3 Ml) 3 ml NEB Q4HRRT PRN PRN Reason: Shortness of Breath Last Admin: 01/27/19 02:38 Dose: 3 ml Albuterol/Ipratropium (Duoneb 3.0-0.5 Mg/3 Ml) 3 ml NEB Q6HRRT TODD Last Admin: 01/28/19 05:47 Dose: 3 ml Atorvastatin Calcium (Lipitor) 40 mg PO BEDTIME TODD Last Admin: 01/27/19 21:21 Dose: 40 mg Diltiazem HCl (Cardizem Cd) 240 mg PO BEDTIME TODD Last Admin: 01/27/19 21:21 Dose: 240 mg Diphenhydramine HCl (Benadryl) 25 mg PO Q4H PRN PRN Reason: sinus pressure Last Admin: 01/26/19 16:49 Dose: 25 mg Escitalopram Oxalate (Lexapro) 10 mg PO BEDTIME TODD Last Admin: 01/27/19 21:21 Dose: 10 mg Hydrochlorothiazide (Hydrochlorothiazide) 25 mg PO DAILY TODD Last Admin: 01/28/19 09:23 Dose: 25 mg Levofloxacin/Dextrose 750 mg/ (Premix) 150 mls @ 100 mls/hr IV Q24H TODD Last Admin: 01/27/19 15:12 Dose: 100 mls/hr Melatonin (Melatonin) 6 mg PO BEDTIME PRN PRN Reason: SLEEP Last Admin: 01/28/19 01:25 Dose: 6 mg Ondansetron HCl (Zofran) 4 mg IVPUSH Q4H PRN PRN Reason: Nausea/Vomiting Pramipexole Dihydrochloride (Mirapex) 0.25 mg PO DAILY@1700 TODD Last Admin: 01/27/19 16:45 Dose: 0.25 mg Sodium Chloride (Saline Flush) 10 ml FLUSH ASDIRECTED PRN PRN Reason: Keep Vein Open Last Admin: 01/25/19 14:24 Dose: 10 ml Sodium Chloride (Saline Flush) 2.5 ml FLUSH ASDIRECTED PRN PRN Reason: Keep Vein Open Last Admin: 01/25/19 14:24 Dose: 2.5 ml Discontinued Medications Albuterol/Ipratropium (Duoneb 3.0-0.5 Mg/3 Ml) 3 ml NEB ONETIME ONE Stop: 01/25/19 14:10 Last Admin: 01/25/19 14:24 Dose: 3 ml Sodium Chloride (Normal Saline) 1,000 mls @ 999 mls/hr IV .Bolus ONE Stop: 01/25/19 15:09 Last Admin: 01/25/19 14:24 Dose: 999 mls/hr Levofloxacin/Dextrose 500 mg/ (Premix) 100 mls @ 100 mls/hr IV ONETIME ONE Stop: 01/25/19 16:03 Last Admin: 01/25/19 15:16 Dose: 100 mls/hr Ketorolac Tromethamine (Toradol) 30 mg IVPUSH ONETIME ONE Stop: 01/25/19 15:10 Last Admin: 01/25/19 15:14 Dose: 30 mg
== END 2019-01-28 11:40 | disposition home or self-care (01) | DRG 139 ==
LOC: MW.ED 14:01 → MW.MS 15:49
PROVIDERS: ADMIT Internal Medicine; ATTEND Internal Medicine
DX: J18.1 Lobar pneumonia, unspecified organism (principal); E78.5 Hyperlipidemia, unspecified; I10 Essential (primary) hypertension; F32.9 Major depressive disorder, single episode, unspecified; F41.9 Anxiety disorder, unspecified; I49.1 Atrial premature depolarization; H54.7 Unspecified visual loss; J45.909 Unspecified asthma, uncomplicated; K58.9 Irritable bowel syndrome, unspecified; R09.02 Hypoxemia; Z87.442 Personal history of urinary calculi; Z85.828 Personal history of other malignant neoplasm of skin; Z98.891 History of uterine scar from previous surgery; Z79.899 Other long term (current) drug therapy; Z88.1 Allergy status to other antibiotic agents; Z88.8 Allergy status to other drugs, medicaments and biological substances
CPT/HCPCS: 36415; 71046; 71046-26; 80048; 80053; 85025; 87040; 87804; 94640; 96361; 96365; 96375; 99283; 99284-25; A9270-GY; J1885; J1956; J7040; J7620-GY

== ENCOUNTER 2023-02-12 21:12 | Emergency (ER) | payer MEDICARE ==
[2023-02-12] MEDS ORDERED: Diltiazem 180 MG Cap.CD PO ONE (22:14)
[2023-02-12 22:24] LABS: CARBON DIOXIDE,CO2 27.5 mmol/L (21.0-32.0); POTASSIUM,K 3.5 mmol/L (3.5-5.1)
[2023-02-12] MEDS ORDERED: Diltiazem 120 MG Cap.CD ONE (22:32)
[2023-02-12] MEDS ORDERED: Diltiazem 120 MG Cap.CD PO STA (22:35)
[2023-02-12 23:37] VITALS: BP 130/58; PULSE 74
== END 2023-02-13 01:00 | disposition home or self-care (01) ==
LOC: MW.ED 21:12
DX: R07.89 Other chest pain (principal); I10 Essential (primary) hypertension; J45.909 Unspecified asthma, uncomplicated; Z88.1 Allergy status to other antibiotic agents; Z88.8 Allergy status to other drugs, medicaments and biological substances; Z79.899 Other long term (current) drug therapy
CPT/HCPCS: 36415; 71045; 80053; 84484; 85025; 93005; 99285; A9270

== ENCOUNTER 2025-06-11 08:31 | Day surgery (SDC) | payer MEDICARE, OTHER ==
[2025-06-11] MEDS: Lactated Ringers 1,000 ML IV SCH (09:09)
[2025-06-11] MEDS ORDERED: propofoL 500 MG/50 ML 50 ML ONE (09:20)
[2025-06-11] MEDS ORDERED: Lactated Ringers 1,000 ML IV SCH (10:15)
[2025-06-11 10:51] VITALS: BP 103/66; PULSE 55
== END 2025-06-11 10:55 | disposition home or self-care (01) ==
LOC: MW.SDS 08:31
PROVIDERS: ATTEND Surgery
DX: K57.30 Diverticulosis of large intestine without perforation or abscess without bleeding (principal); F41.9 Anxiety disorder, unspecified; E78.00 Pure hypercholesterolemia, unspecified; I10 Essential (primary) hypertension; K21.9 Gastro-esophageal reflux disease without esophagitis; Z80.0 Family history of malignant neoplasm of digestive organs; Z88.1 Allergy status to other antibiotic agents; Z79.899 Other long term (current) drug therapy
CPT/HCPCS: 45378; J2003; J2704; J7120; 00811